=== PATIENT | female | born 1985 | race Caucasian/White ===

== ENCOUNTER → 2020-04-26 10:35 | Outpatient (BNVA) | payer BC, SELFPAY | PROVIDERS: Family Provider Obstetrics & Gynecology; Visit Provider Obstetrics & Gynecology | DX: R87.610 Atypical squamous cells of undetermined significance on cytologic smear of cervix (ASC-US) (principal); R87.810 Cervical high risk human papillomavirus (HPV) DNA test positive | CPT/HCPCS: 88175 ==

== ENCOUNTER 2021-08-23 12:53 | Emergency (ER) | payer SELFPAY ==
[2021-08-23 12:58] VITALS: BP 119/84; TEMP 36.3; O2SAT 96; BMI 28.8
--- NOTE | 2021-08-23 13:04 | CTR_ITS ---
PROCEDURE INFORMATION: Exam: CT Head Without Contrast Exam date and time: 08/23/2021 1:04 PM Age: 36 years old Clinical indication: Injury or trauma; Fall; Blunt trauma (contusions or hematomas) TECHNIQUE: Imaging protocol: Computed tomography of the head without contrast. Radiation optimization: All CT scans at this facility use at least one of these dose optimization techniques: automated exposure control; mA and/or kV adjustment per patient size (includes targeted exams where dose is matched to clinical indication); or iterative reconstruction. COMPARISON: No relevant prior studies available. RADIATION DOSE METRICS: Total DLP (mGy-cm): 1507.48 FINDINGS: Brain: Normal. No hemorrhage. Unremarkable white matter. No mass effect. Cerebral ventricles: No ventriculomegaly. Paranasal sinuses: Visualized sinuses are unremarkable. No fluid levels. Mastoid air cells: Visualized mastoid air cells are well aerated. Bones/joints: Unremarkable. No acute fracture. Soft tissues: Unremarkable. CT/CT head wo con* [id number] IMPRESSION: No acute intracranial abnormality.
[2021-08-23] MEDS: lidocaine 1% INJ 20 mL INJECTION (13:20)
--- NOTE | 2021-08-23 14:21 | ED_ITS ---
HPI - Fall General: Chief Complaint: Fall Stated Complaint: HEAD LAC S/P FALL Time Seen by Provider: 08/23/21 12:55 History of Present Illness: HPI Narrative: Patient comes in complaining of a laceration to the back of her head after falling off a hover board. States she fell backwards and hit her head on the wooden steps. She denies LOC. Denies vomiting. She does have some nausea associated with it. Denies any other trauma. Associated symptoms-after fall: Reports headache(s); Denies abdominal pain, chest pain or neck pain Review of Systems Const: Denies: fever(s) or body aches Eyes: Denies: change in vision or blurry vision ENMT: Denies: throat pain or odynophagia Card: Denies: chest pain or palpitations Resp: Denies: dyspnea or productive cough GI: Denies: abdominal pain, nausea or vomiting : Denies: flank pain Musc: Denies: neck pain or back pain Skin/Breast: Denies: rash or pruritus Neuro: Reports: headache(s); Denies: numbness in extremities Psych: Denies: anxiety or change in appetite Endo: Denies: polyuria or excessive sweating PFSH ED PFSH: Medical History (Updated 08/23/21 @ 14:21 by Marcel Huffman MD) Heart murmur Surgical History (Updated 04/27/20 @ 16:47 by Americo Bynum MD) S/P primary low transverse (05/19/06) Performed by Dr. Mackenzie in [place], [place] Family History Grandmother Hypertension Paternal Diabetes Maternal, Paternal Heart disease Paternal Grandfather Hypertension Paternal Stroke Maternal Mother Diabetes Social History (Updated 04/27/20 @ 16:50 by Americo Bynum MD) Smoking and tobacco status: current every day smoker cigarettes Packs smoked per day: 1 Years cigarettes smoked: 16 Alcohol intake: never Physical Exam Const: COMMON NORMALS: no acute distress and patient oriented x3 EXAM LIMITATIONS: no altered mental status GENERAL APPEARANCE: cooperative, comfortable and well developed ORIENTATION/CONSCIOUSNESS: Yes awake, Yes oriented to person, Yes oriented to place and Yes oriented to time HENMT: COMMON NORMALS: normocephalic; head/scalp not atraumatic (9 cm laceration to posterior occipital scalp) HEAD & SCALP: normocephalic; not atraumatic (9 cm laceration to posterior occipital scalp) Eye: COMMON NORMALS: Equal, round and reactive pupils present and EOMs intact bilaterally PUPIL: Yes Equal, round and reactive pupils present Neck/C-Spine: COMMON NORMALS: full ROM (Full range of motion without pain or paresthesia) and supple Resp: COMMON NORMALS: normal respiratory effort, No retractions and clear to auscultation bilaterally AUSCULTATION: clear to auscultation bilaterally Cardio: COMMON NORMALS: regular rate and regular rhythm RATE: regular rate RHYTHM: regular rhythm GI: COMMON NORMALS: Normal to inspection, nondistended, normoactive bowel sounds present, Soft to palpation and non-tender PALPATION: Yes Soft to palpation Back/Pelvis: COMMON NORMALS: thoraco-lumbar ROM normal Extremity: COMMON NORMALS: normal to inspection and full ROM Neuro: COMMON NORMALS: patient oriented x3 SENSORIUM/ORIENTATION: Yes oriented to person, Yes oriented to place and Yes oriented to time Procedures Laceration Laceration 1: Site: scalp Size (cm): 9 Description: linear Depth: involves muscle layer Local Anesthetic: lidocaine 1% Amount of anesthesia used (mL): 10 Pre-repair: wound explored and irrigated extensively Skin layer closed with: other (10 gloria) Course ED course: Patient comes in complaining of a laceration to her occipital scalp. States she got on her [employer] hover board and fell backwards hitting her head on the edge of a wooden step. She denies LOC. She does have some nausea associated with it. On physical exam she has a 9 cm laceration to her occipital scalp. Will check CT, clean and repair of the wound, and reassess. Reevaluation(s): Reevaluation #1: On reassessment I talked with the patient about the test results. She tolerated the procedure without complication. I talked her at length about symptoms which prompt immediate return to the emergency department. We did discuss concussion symptoms and treatment. Will discharge with precautions to return for worsening or changing symptoms. Vital Signs: Vital signs: Vital Signs Temperature 97.3 F L 08/23/21 12:58 Blood Pressure 119/84 08/23/21 12:58 Pulse Oximetry 96 08/23/21 12:58 Discharge Plan Discharge Patient Disposition: Home Clinical Impression: Laceration of occipital region of scalp Qualifiers: Encounter type: initial encounter Qualified Code(s): S01.01XA - Laceration without foreign body of scalp, initial encounter Condition: Stable Prescriptions: No Action One A Day Women's DHA 28 mg iron- 800 mcg combo pack PO DAILY RF: 0 Discharge Orders: Discharge ED (Routine); Ordered 08/23/21 Ordered By: Marcel Huffman Coding Level of Care Code ED 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
[2021-08-23 14:37] VITALS: BP 108/61; PULSE 84; O2SAT 94
== END 2021-08-23 14:39 | disposition home or self-care (01) ==
PROVIDERS: Emergency Provider Emergency Medicine
DX: S01.01XA Laceration without foreign body of scalp, initial encounter (principal); F17.210 Nicotine dependence, cigarettes, uncomplicated; V00.131A Fall from skateboard, initial encounter
CPT/HCPCS: 12004; 70450; 99282